=== PATIENT | male | born 1945 | race Caucasian/White ===

== ENCOUNTER → 2024-03-05 06:20 | Day surgery (SDC) | payer MEDICARE, OTHER, SELFPAY | LOC: GI 06:20 | PROVIDERS: ATTENDING PHYSICIAN Internal Medicine Gastroenterology; FAMILY PHYSICIAN Family Medicine | DX: Z12.11 Encounter for screening for malignant neoplasm of colon (principal); K64.8 Other hemorrhoids; K57.30 Diverticulosis of large intestine without perforation or abscess without bleeding; K63.5 Polyp of colon; Z86.010 Personal history of colon polyps | CPT/HCPCS: 45380; 88305 ==

== ENCOUNTER → 2024-06-23 09:59 | Outpatient (REF) | payer MEDICARE, OTHER, SELFPAY | LOC: RCS 09:59 | PROVIDERS: ATTENDING PHYSICIAN Nuclear Medicine Nuclear Cardiology; FAMILY PHYSICIAN Family Medicine | DX: I34.0 Nonrheumatic mitral (valve) insufficiency (principal); R06.02 Shortness of breath | CPT/HCPCS: 93306 ==

== ENCOUNTER → 2024-10-31 09:41 | Outpatient (REF) | payer MEDICARE, OTHER, SELFPAY | LOC: RCS 09:41 | PROVIDERS: ATTENDING PHYSICIAN Nuclear Medicine Nuclear Cardiology; FAMILY PHYSICIAN Family Medicine | DX: R06.09 Other forms of dyspnea (principal); I10 Essential (primary) hypertension; R06.02 Shortness of breath | CPT/HCPCS: 93017; 93350 ==

== ENCOUNTER → 2025-01-07 11:01 | Outpatient (REF) | payer MEDICARE, OTHER, SELFPAY | LOC: HWRCS 11:01 | PROVIDERS: ATTENDING PHYSICIAN Nuclear Medicine Nuclear Cardiology; FAMILY PHYSICIAN Family Medicine | DX: R06.09 Other forms of dyspnea (principal); I10 Essential (primary) hypertension; R06.02 Shortness of breath | CPT/HCPCS: 93306 ==

== ENCOUNTER 2025-05-24 10:42 | Emergency (ER) | payer MEDICARE, OTHER, SELFPAY ==
[2025-05-24 10:45] VITALS: BP 134/75
[2025-05-24] MEDS: TYLENOL 650 MG PO (11:31)
[2025-05-24] MEDS: PERCOCET 5/325 1 TABLET PO (12:48)
--- NOTE | 2025-05-24 12:54 | ED.GENMED ---
History of Present Illness
General
Chief Complaint: Musculo-Skeletal Complaint
Time Seen by Provider: 05/24/25 11:12
History of Present Illness
History of Present Illness:
Jared is a 79-year-old male with past medical history of hypertension, BPH and hyperlipidemia who presents after a fall while traveling in his driveway this morning. Reports that he fell directly onto his left knee. No head strike or loss of
consciousness. Was unable to ambulate secondary to left thigh pain.
Past History
Past History
ED Past Medical History: HTN and Hypercholesterolemia
ED Past Surgical History: Tonsilectomy, Urological (Vasectomy) and Other (Hernia)
Social History
Tobacco: Non-smoker
Personal:
Living: with family
Employment: Employed
Family History
Family History: CAD
Phy Exam
General Physical Exam
General Presentation: well appearing and no apparent distress
General Skin: warm and dry
General Habitus: normal
General Mental: alert
General Hydration: appears well hydrated
ENT Exam
ENT Exam: EOMI, pharynx normal, neck supple and normocephalic
Eye Exam
Eye Exam: PERRL, cornea clear and conjunctiva normal
Cardiovascular Exam
Cardiovascular Exam: regular rate/rhythm, no edema, no murmur and normal peripheral pulses
Pulmonary Exam
Pulmonary Exam: lungs clear, no respiratory distress, no rales, no crackles, no rhonchi, no stridor, no wheezing and no cough
Gastrointestinal Exam
Gastrointestinal Exam: normal bowel sounds, non tender, soft, no organomegaly, no pulsatile mass and non distended
Neurological Exam
Neurological Exam: alert, oriented x3, no motor deficits and speech normal
Musculoskeletal Exam
Musculoskeletal Exam: full ROM, no edema, joint swelling (Left knee) and other (Ecchymosis over superior aspect of left knee. Tenderness to mid thigh palpation)
Skin Exam
Skin Exam: normal color, warm/dry, no rash and no petechia
Psychiatric Exam
Psychiatric Exam: normal mood/affect
Course
Orders/Labs/Results
Orders:
Orders
05/24/25 11:28
CR Femur - Left Min 2 Vw Urgent
Comment:
Reason For Exam: pain after a fall
CR Knee - Left 3 Views Urgent
Comment:
Reason For Exam: pain after fall
05/24/25 11:29
Acetaminophen [Tylenol] 650 mg PO NOW STA
05/24/25 12:28
Cyclobenzaprine HCl [Flexeril] 5 mg PO NOW STA
05/24/25 12:39
Oxycodone/Acetaminophen [Percocet 5/325] 1 tablet PO NOW STA
05/24/25 12:41
Knee Immobilizer Left-Treatmen ONCE
Vital Signs
Initial and Last Documented VS:
Initial Vital Signs
Temp Pulse Resp BP Pulse Ox
36.9 C 68 22 134/75 94
05/24/25 10:45 05/24/25 10:45 05/24/25 10:45 05/24/25 10:45 05/24/25 10:45
Last Documented Vital Signs
Temp Pulse Resp BP Pulse Ox
36.9 C 68 22 134/75 94
05/24/25 10:45 05/24/25 10:45 05/24/25 10:45 05/24/25 10:45 05/24/25 10:45
MDM/Problems Addressed
Differential Diagnosis Includes:
Left knee is swollen and ecchymotic. Patient reports some pain in left knee but majority of pain is located in the left lateral thigh. X-rays of the knee and femur obtained and were negative for any bony injury. X-rays did show a suprapatella
effusion which is likely related to this fall. Recommended multimodal pain control and knee immobilizer for comfort. Discussed rest and ice to allow swelling to decrease. He does have an orthopedic doctor that he sees and he will follow-up with
him in 5 to 7 days with his pain is not improving. Immobilizer was provided. Discussed that he should take this off and range his knee when he is resting. Prescriptions for Flexeril and oxycodone sent. Discussed that he should not take these
medications together nor drive while taking them. All questions answered. and patient in agreement with the plan.
*Pulse Oximetry
SaO2: 94
Oxygen Mode of Delivery: Room air
Patient hypoxic: no
*Critical Care Note
Total Time (30-74mins, 75-104mins- exclusive of procedures): Not Applicable
ED Attending Note
-
Portions of this chart may have been created with voice recognition software.� Occasional wrong word or��sound alike� substitutions may have occurred due to the inherent limitations of voice recognition software.
Discharge Plan
Departure
Patient Disposition: Home (Routine Discharge)
Date of Disposition: 05/24/25
Time of Disposition: 12:40
Patient with high blood pressure during this ER visit?: Yes
Discharge Problem:
Effusion of knee, Hematoma of left knee region, Fall
Instructions: Swollen Joints (DC), Knee Sprain ED
Prescriptions:
New
oxycodone 5 mg tablet
5 mg PO Q8H PRN (Reason: severe pain) Qty: 5 0RF
cyclobenzaprine 5 mg tablet
5 mg PO TID PRN (Reason: muscle spasm) Qty: 10 0RF
No Action
lisinopril-hydrochlorothiazide 1 EACH tablet
1 tab PO DAILY
simvastatin 40 MG tablet
40 mg PO HS
aspirin 81 MG tablet,chewable
81 mg PO DAILY
ibuprofen [Advil] 200 MG tablet
400 mg PO PRN PRN (Reason: pain)
Otc Fiber Pills
2 - 3 tab PO DAILY
Referrals:
Francisco J Botello MD [Family Provider, Family Practice]
Activity Restrictions/Additional Instructions:
You should take Tylenol or Motrin for pain. You can take these medications every 6 hours. A prescription for muscle relaxer Flexeril and oxycodone has been sent to your pharmacy. Y you should use these medications as needed. They can both be
taken every 8 hours for pain. Do not take these medications together. Do not drive while taking these medications. Call your orthopedic doctor if your pain and symptoms not improved in 5 days. Is important to rest and use ice to help decrease
swelling. Knee immobilizer can be used while walking but should not be worn at all times. Is important to continue to range your knee.
Interventions
Interventions:
*Risk Screen - Suicide Last Done: 05/24/25 10:45
*General Assessment Last Done: 05/24/25 10:45
*Neglect/Abuse Screening Last Done: 05/24/25 10:45
*Nursing Disposition Last Done: 05/24/25 12:53
ED-Musculoskeletal Assessment Last Done: 05/24/25 11:30
Discharge Date and Time
Discharge Date/Time: 05/24/25 12:54
Print Language: WELSH
== END 2025-05-24 12:54 | disposition home or self-care (01) ==
LOC: EMR 10:42
PROVIDERS: EMERGENCY PHYSICIAN Emergency Medicine; FAMILY PHYSICIAN Family Medicine
DX: M25.462 Effusion, left knee (principal); S80.02XA Contusion of left knee, initial encounter; W18.30XA Fall on same level, unspecified, initial encounter; Y93.H1 Activity, digging, shoveling and raking; Y92.008 Other place in unspecified non-institutional (private) residence as the place of occurrence of the external cause; I10 Essential (primary) hypertension; E78.00 Pure hypercholesterolemia, unspecified; N40.0 Benign prostatic hyperplasia without lower urinary tract symptoms; Z79.82 Long term (current) use of aspirin; Z82.49 Family history of ischemic heart disease and other diseases of the circulatory system
CPT/HCPCS: 99283; 29505; 73552; 73562

== ENCOUNTER 2025-06-05 09:50 | Outpatient (RCR) | payer MEDICARE, OTHER, SELFPAY | END 2025-06-05 23:59 | disposition home or self-care (01) | LOC: RPT 09:50 | PROVIDERS: ATTENDING PHYSICIAN Orthopaedic Surgery; FAMILY PHYSICIAN Family Medicine | DX: M75.41 Impingement syndrome of right shoulder (principal); M25.511 Pain in right shoulder; Z73.6 Limitation of activities due to disability; M62.81 Muscle weakness (generalized) | CPT/HCPCS: 97110; 97162 ==

== ENCOUNTER → 2025-06-08 07:43 | Outpatient (REF) | payer MEDICARE, OTHER, SELFPAY | LOC: RCS 07:43 | PROVIDERS: ATTENDING PHYSICIAN Nuclear Medicine Nuclear Cardiology; FAMILY PHYSICIAN Family Medicine | DX: I10 Essential (primary) hypertension (principal); R06.09 Other forms of dyspnea | CPT/HCPCS: 93306 ==